=== PATIENT | female | born 1950 | race Caucasian/White ===

== ENCOUNTER → 2019-09-14 | Outpatient (CLI) | payer MEDICAID | LOC: MHCPAIN 13:36 | DX: M47.817 Spondylosis without myelopathy or radiculopathy, lumbosacral region (principal); M54.16 Radiculopathy, lumbar region | CPT/HCPCS: G0463 ==

== ENCOUNTER → 2019-10-21 | Outpatient (CLI) | payer MEDICAID | LOC: MHCPAIN 11:38 | DX: M54.5 Low back pain (principal); Z98.1 Arthrodesis status ==